=== PATIENT | female | born 1960 | race Caucasian/White ===

== ENCOUNTER → 2018-01-28 16:07 | Outpatient (CLI) | payer OTHER, SELFPAY ==
[2018-01-28 18:18] LABS: Anion Gap 10 (5-15); BUN 21 mg/dL (7-18); BUN/Creat Ratio 31.6 RATIO (10-20); Calcium,Total 9.1 mg/dL (8.5-10.1); Chloride 106 mmol/L (98-107); Cholesterol 248 mg/dL (200); Creatinine, Serum 0.66 mg/dL (0.55-1.02); EST Glomerular Filtration Rate 98 mL/min (>60); Est Glom Filt Rate - Afr Amer 119 mL/min (>60); Glucose 84 mg/dL (74-106); High Density Lipoprotein 52 mg/dL; Sodium Level 143 mmol/L (136-145); T4 Total, Thyroxin 12.5 ug/dL (4.8-13.9); Thyroid Stim Hormone (TSH) 2.33 uIU/mL (0.358-3.74); Triglycerides 147 mg/dL; Very Low Density Lipoprotein 29 mg/dL (5-40)
== END ==
PROVIDERS: Family Provider Family Medicine; PCP Family Medicine; Visit Provider Family Medicine
DX: Z00.00 Encounter for general adult medical examination without abnormal findings (principal); E03.9 Hypothyroidism, unspecified
CPT/HCPCS: 36415; 80048; 80061; 84436; 84443

== ENCOUNTER → 2019-09-08 15:35 | Outpatient (CLI) | payer OTHER, SELFPAY ==
[2019-06-21 07:15] VITALS: BMI 29.6
[2019-09-08 17:52] LABS: Cholesterol 313 mg/dL (200); High Density Lipoprotein 73 mg/dL; T4 Total, Thyroxin 9.6 ug/dL (4.8-13.9); Thyroid Stim Hormone (TSH) 8.28 uIU/mL (0.358-3.74); Triglycerides 82 mg/dL; Very Low Density Lipoprotein 16 mg/dL (5-40)
== END ==
PROVIDERS: Family Provider Family Medicine; PCP Family Medicine; Referring Provider Family Medicine; Visit Provider Family Medicine
DX: E03.9 Hypothyroidism, unspecified (principal); E78.5 Hyperlipidemia, unspecified
CPT/HCPCS: 36415; 80061; 84436; 84443

== ENCOUNTER → 2019-12-08 | Outpatient (CLI) | payer OTHER, SELFPAY ==
[2019-06-21 07:15] VITALS: BMI 29.6
[2019-12-08 17:44] LABS: AST(SGOT) 15 U/L (15-37); Alanine Aminotransfer ALT/SGPT 31 U/L (13-56); Cholesterol 173 mg/dL (200); High Density Lipoprotein 74 mg/dL; T4 Total, Thyroxin 13.7 ug/dL (4.8-13.9); Thyroid Stim Hormone (TSH) 0.01 uIU/mL (0.358-3.74); Triglycerides 93 mg/dL; Very Low Density Lipoprotein 19 mg/dL (5-40)
== END | disposition home or self-care (01) ==
LOC: MFPLAB 16:00
PROVIDERS: PCP Family Medicine; Referring Provider Family Medicine; Visit Provider Family Medicine
DX: E03.9 Hypothyroidism, unspecified (principal); E78.5 Hyperlipidemia, unspecified
CPT/HCPCS: 36415; 80061; 84436; 84443; 84450; 84460

== ENCOUNTER → 2020-03-06 | Outpatient (CLI) | payer OTHER, SELFPAY ==
[2019-06-21 07:15] VITALS: BMI 29.6
[2020-03-06 16:15] LABS: Thyroid Stim Hormone (TSH) 0.57 uIU/mL (0.358-3.74)
== END | disposition home or self-care (01) ==
LOC: MFPLAB 14:36
PROVIDERS: PCP Family Medicine; Visit Provider Family Medicine
DX: E03.9 Hypothyroidism, unspecified (principal)
CPT/HCPCS: 36415; 84443

== ENCOUNTER → 2022-05-22 | Outpatient (CLI) | payer OTHER, SELFPAY ==
[2022-05-22 15:35] LABS: Cholesterol 232 mg/dL (200); High Density Lipoprotein 55 mg/dL; T4 Total, Thyroxin 14.2 ug/dL (4.8-13.9); Thyroid Stim Hormone (TSH) 0.33 uIU/mL (0.358-3.74); Triglycerides 64 mg/dL; Very Low Density Lipoprotein 13 mg/dL (5-40)
== END | disposition home or self-care (01) ==
LOC: MFPLAB 11:48
PROVIDERS: PCP Family Medicine; Referring Provider Family Medicine; Visit Provider Family Medicine
DX: E03.9 Hypothyroidism, unspecified (principal); E78.5 Hyperlipidemia, unspecified
CPT/HCPCS: 36415; 80061; 84436; 84443

== ENCOUNTER → 2023-12-14 | Outpatient (CLI) | payer OTHER, SELFPAY ==
[2023-12-14 18:48] LABS: T4 Total, Thyroxin 13.2 ug/dL (4.8-13.9); Thyroid Stim Hormone (TSH) 3.37 uIU/mL (0.358-3.74)
== END | disposition home or self-care (01) ==
LOC: MFPLAB 15:44
PROVIDERS: PCP Family Medicine; Visit Provider Family Medicine
DX: E03.9 Hypothyroidism, unspecified (principal)
CPT/HCPCS: 36415; 84436; 84443

== ENCOUNTER → 2024-12-22 | Outpatient (CLI) | payer SELFPAY ==
[2024-12-22 18:20] LABS: Cholesterol 289 mg/dL (<=200); High Density Lipoprotein 62 mg/dL; Low Density Lipoprotein Calc. 204 mg/dL; Triglycerides 117 mg/dL; Very Low Density Lipoprotein 23 mg/dL (5-40); cholesterol:hdl ratio screen 4.68
== END | disposition home or self-care (01) ==
PROVIDERS: PCP Family Medicine; Referring Provider Family Medicine; Visit Provider Family Medicine
DX: E78.5 Hyperlipidemia, unspecified (principal); E03.9 Hypothyroidism, unspecified
CPT/HCPCS: 36415; 80061; 84436; 84443

== ENCOUNTER 2025-01-05 10:49 | Emergency (ER) | payer SELFPAY, OTHER ==
[2025-01-05 10:49] VITALS: BP 139/92; PULSE 103; RESP 18; TEMP 36.8; O2SAT 97; BMI 32.5
--- NOTE | 2025-01-05 12:04 | CT_ITS ---
PROCEDURE: CTA HEAD AND NECK W/ CONTRAST 01/05/2025 REASON FOR EXAM: HEADACHE Erythema of the right eye. TECHNIQUE: CTA imaging of the head and neck from the aortic arch to the skull vertex with intravenous contrast. Coronal and Sagittal reconstruction series were provided. 3D, 3D post processing, 3D reconstructions, Maximum intensity projection (MIPs) Volume rendering and Shaded surface rendering was provided. One or more dose reduction techniques were used (e.g., Automated exposure control, adjustment of the mA and/or kV according to patient size, use of iterative reconstruction technique). CONTRAST: Isovue 370 VOLUME: 100 mL RADIATION DOSE SUMMARY: CTDlvol: 28 mGy DLP: 1495.92 mGycm COMPARISON: None FINDINGS: Aortic Arch: Normal size and branching pattern. Mild atherosclerotic plaque. Brachiocephalic and Subclavians: Unremarkable RIGHT Carotid: Right CCA: Unremarkable. Right ICA: Unremarkable. Right ECA: Unremarkable. LEFT Carotid: Left CCA: Unremarkable. Left ICA: Unremarkable. Left ECA: Unremarkable. Vertebrals: Codominant. Arise from the subclavians. Both vertebrals form the basilar. RIGHT Vertebral: Unremarkable. LEFT Vertebral: Unremarkable. Anatomy: [place] anatomy is normal. Aneurysm or avm: No intracranial aneurysms or large vascular malformations are identified. Anterior cerebral arteries: Unremarkable: Middle cerebral arteries: Unremarkable. Basilar artery: Unremarkable. Posterior cerebral arteries: Unremarkable. Other major branches of the posterior circulation: Unremarkable. Major venous structures: Unremarkable. The unenhanced brain is unremarkable. CT/CTA Head AND Neck W/ Contrast IMPRESSION: Unremarkable examination. Reading Location: [place] [id number]
--- NOTE | 2025-01-05 12:05 | EX.ED.DYSGE1 ---
HPI History of Present Illness Chief Complaint: Headache Informant: patient Narrative Narrative: 64-year-old female presenting to the emergency room with bilateral eye redness and frontal headache. Patient states that she takes levothyroxine as well as starting rosuvastatin for high cholesterol. She called her primary care doctor today and was advised to come to emergency. She denies any foreign body sensation or trauma eye burning or excessive tearing. She notes a frontal pressure particularly when she moves her eyes. She denies any vision changes. No halos or floaters. She denies any arm leg or speech or sensory changes. She sees an motorized squad sergeant for glasses. [facility] Medical History Hypercholesterolemia Hypothyroid Allergic contact dermatitis Acute bronchitis Home Medications ?Medication ?Instructions ?Recorded ?Last Taken ?Type levothyroxine 200 mcg tablet 200 mcg PO DAILY 01/05/25 Unknown History rosuvastatin 5 mg tablet 5 mg PO QHS 01/05/25 Unknown History Allergy/AdvReac Type Severity Reaction Status Date / Time amoxicillin Allergy Mild Hives Verified 01/05/25 10:50 Penicillins Allergy Mild Hives Verified 01/05/25 10:50 Family History Uncle Colon cancer Other CHF (congestive heart failure) Surgical History History of colonoscopy History of section Social History household members: spouse current occupational status: employed current occupation: Dental office, 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 Smoking Status: Never smoker alcohol intake: never ROS ROS ED Constitutional Constitutional ED: Denies chills, fever(s) or weight loss Eyes Eyes: Reports other Details: Bilateral conjunctival injection ; Denies blurry vision, change in vision or diplopia ENT ENT ED: Denies ear pain, rhinorrhea or sore throat Cardiovascular Cardiovascular: Denies chest pain, orthopnea, palpitations or racing heartbeat Respiratory/Chest Respiratory/Chest: Denies cough, dyspnea or orthopnea Gastrointestinal Gastrointestinal: Denies abdominal pain, diarrhea, nausea or vomiting Genitourinary Genitourinary ED: Denies dysuria, hematuria or urinary frequency Musculoskeletal Musculoskeletal: Denies arthralgias or myalgias Integumentary Denies abscess or rash Neurologic Neurologic: Reports headache(s); Denies paresthesias or weakness Psychiatric Psychiatric: Denies anxiety, depression, suicidal ideation or suicidal thoughts Endocrine Endocrinology: Denies polydipsia, polyphagia or polyuria Allergic/Immunologic Allergic/Immunologic ED: Denies mouth swelling, tongue swelling or urticaria EXAM Physical Exam Const Vital Signs: 01/05/25 10:49 01/05/25 12:49 Temperature 98.3 F Temperature Source Temporal Pulse Rate 103 H 83 Respiratory Rate 18 16 Blood Pressure 139/92 H 129/80 H Blood Pressure Mean 107 96 Pulse Ox 97 98 Oxygen Delivery Method Room Air Positive well nourished and well developed General Appearance ED: well developed HEENT Reports normocephalic, head/scalp atraumatic and moist mucous membranes Eyes PERRL and EOMs intact bilaterally Eyes Narrative: Bilateral conjunctival injection. There is no corneal abrasions. No obvious corneal foreign bodies. No exudates are noted. No hyphema. Anterior chambers are deep and quiet. Consensual reflex bilaterally. No photophobia. Neck no lymphadenopathy, supple and no JVD Resp normal respiratory effort and clear to auscultation bilaterally Cardio regular rate, regular rhythm and no murmurs GI normal to inspection, nondistended, normoactive bowel sounds and non-tender Palpation: soft Back/Spine no CVA tenderness and normal ROM Extremity normal to inspection General Extremety ED: Negative for edema General Extremity: Negative for edema Neuro oriented x3 and CN's II-XII intact bilaterally Sensorium / Orientation: alert Motor Exam: strength 5/5 throughout Psych mental status grossly normal Mood & Affect: Negative for depressed or tearful Skin no rashes or lesions noted and no wounds MDM MDM MDM Narrative Medical decision making narrative: Differential diagnosis includes but not limited to conjunctivitis glaucoma/decreased pressures foreign body, thyrotoxicosis temporal arteritis autoimmune reaction allergic reaction Bilateral pressures show that the left eye is 19/23/18 in the right eye is 23/22/20. I do not appreciate any corneal or bodies or corneal abrasions. Basic blood work shows normal TSH free T3. White count 8.4. Normal LFTs. CPK is 60. Normal creatinine. CTA head and neck shows no acute findings. I spoke with Dr. Glaser from ophthalmology. Patient will use artificial tears. Have her follow-up in the office. To return if any new symptoms or concerns. History & Record Review Discussion w/independent historian: Patient Lab Data Attestation: I reviewed the patient's lab results. Labs: Laboratory Results - last 24 hr 01/05/25 12:15 WBC 8.4 RBC 4.27 Hgb 12.7 Hct 39.3 MCV 92.0 MCH 29.7 MCHC 32.3 RDW Std Deviation 48.8 H RDW Coeff of Freddie 14.4 Plt Count 220 MPV 11.8 Immature Gran % (Auto) 0.400 Neut % (Auto) 77.6 H Lymph % (Auto) 9.0 L [place] % (Auto) 9.1 Eos % (Auto) 3.7 Baso % (Auto) 0.2 Absolute Neuts (auto) 6.5 Absolute Lymphs (auto) 0.75 L Nucleated RBC % 0 Sodium 142 Potassium 3.8 Chloride 106 Carbon Dioxide 24.1 Anion Gap 12 BUN 12 Creatinine 0.70 Estim Creat Clear Calc 88.43 Est GFR (MDRD) Non-Af 98 BUN/Creatinine Ratio 16.8 Glucose 99 Calcium 9.1 Total Bilirubin 0.41 Direct Bilirubin 0.19 AST 15 ALT 12 Alkaline Phosphatase 55 Total Creatine Kinase 60 Total Protein 6.9 Albumin 4.2 Globulin 2.7 TSH 0.754 Free T3 pg/dL 2.6 Radiography Diagnostic Testing: Clinical Impression(s) from Imaging Studies Head/Neck CTA 01/05/25 12:04 IMPRESSION: Unremarkable examination. Reading Location: [place] [id number] Management Discussion w/another healthcare provider: Manager Client Service (Dr Glaser (ophthalmology)) Discharge Plan Triage Chief Complaint: Headache ED Provider: Rocky Castillo Dx/Rx/DC Orders Clinical Impression: Conjunctival injection, Headache Prescriptions: No Action levothyroxine 200 mcg tablet 200 mcg PO DAILY rosuvastatin 5 mg tablet 5 mg PO QHS Primary Care Provider: Nancy Prasad Referrals: Nancy Prasad MD [Primary Care Provider] - Monika Glaser MD [Med Staff - Active Staff] - As soon as possible Activity Restrictions/Additional Instructions: Use artificial tears to keep the eyes moist. Please schedule follow-up ophthalmology. Please return with any concerns or worsening particularly changes in vision or headache. Print Language: [place] Disposition Disposition: Home, Self Care
[2025-01-05] MEDS: Fluorescein 1 MG STRIP 1 STRIP EACH EYE (12:28)
[2025-01-05] MEDS: Tetracaine 0.5% Ophthalmic Bottle 1 DRP EACH EYE (12:29)
[2025-01-05 12:34] LABS: Absolute Lymphocyte Count 0.75 X10^3/uL (0.83-4.51); Absolute Neutrophil Count 6.5 X10^3/uL (2.0-7.7); Basophil# 0.02 X10^3/uL; Basophil% 0.2 % (0-1); Eosinophil# 0.31 X10^3/uL; Eosinophils% 3.7 % (0-5); Hematocrit 39.3 % (37-47); Hemoglobin 12.7 g/dL (12.0-15.0); Lymphocyte # 0.75 X10^3/ul (0.83-4.51); Mean Corp Hgb Conc 32.3 g/dL (32-36); Mean Corpuscular Hgb 29.7 pg (27.0-32.0); Mean Platelet Vol. 11.8 fl (6.2-12.0); Monocyte# 0.76 X10^3/uL; Monocyte% 9.1 % (0-10); NRBC Flagged by Analyzer 0 % (0-5); Neutrophil % 77.6 % (47-70); Platelet Count 220 K/mm3 (150-450); RBC Distribution Width CV 14.4 % (11.6-14.6); RBC Distribution Width SD 48.8 fl (35.1-43.9); Red Blood Count 4.27 M/mm3 (4.2-5.4); White Blood Count 8.4 K/mm3 (4.4-11.0)
[2025-01-05 12:49] VITALS: BP 129/80; PULSE 83; RESP 16; O2SAT 98
[2025-01-05 13:12] LABS: AST(SGOT) 15 U/L (<=31); Alanine Aminotransfer ALT/SGPT 12 U/L (<=34); Albumin, Serum 4.2 g/dL (3.4-4.8); Alkaline Phosphatase 55 U/L (35-104); Anion Gap 12 (5-15); BUN 12 mg/dL (4-19); BUN/Creat Ratio 16.8 RATIO (10-20); Bilirubin, Direct 0.19 mg/dL (0.00-0.30); Calcium,Total 9.1 mg/dL (7.6-11.0); Carbon Dioxide 24.1 mmol/L (21.0-32.0); Chloride 106 mmol/L (98-108); EST Glomerular Filtration Rate 98 (>60); Estimated Creatinine Clearance 88.43 ml/min (50-250); Globulin 2.7 g/dL (2.2-4.2); Glucose 99 mg/dL (70-99); Potassium 3.8 mmol/L (3.3-5.1); Protein, Total 6.9 g/dL (5.9-8.4); Sodium Level 142 mmol/L (133-145); Total Bilirubin 0.41 mg/dL (0.00-1.30)
[2025-01-05 13:18] LABS: CPK Total, Creatine Kinase 60 U/L (24-195); Free T3 2.6 pg/mL (2.18-3.98); Thyroid Stim Hormone (TSH) 0.754 uIU/mL (0.300-4.200)
[2025-01-05 14:29] VITALS: BP 138/90; PULSE 78; RESP 16; O2SAT 99
== END 2025-01-05 14:30 | disposition home or self-care (01) ==
PROVIDERS: Emergency Provider Emergency Medicine; PCP Family Medicine; Visit Provider Emergency Medicine
DX: R51.9 Headache, unspecified (principal); H11.89 Other specified disorders of conjunctiva; E78.00 Pure hypercholesterolemia, unspecified; E03.9 Hypothyroidism, unspecified; Z88.0 Allergy status to penicillin; Z79.890 Hormone replacement therapy; Z79.899 Other long term (current) drug therapy
CPT/HCPCS: 70496; 70498; 80048; 80076; 82550; 84443; 84481; 85025; 99285; Q9967; A4216

== ENCOUNTER → 2025-01-08 | Outpatient (CLI) | payer SELFPAY ==
[2025-01-08 15:54] LABS: Absolute Lymphocyte Count 0.66 X10^3/uL (0.83-4.51); Absolute Neutrophil Count 4.8 X10^3/uL (2.0-7.7); Basophil# 0.03 X10^3/uL; Basophil% 0.5 % (0-1); Eosinophil# 0.49 X10^3/uL; Eosinophils% 7.5 % (0-5); Hematocrit 38.9 % (37-47); Hemoglobin 12.5 g/dL (12.0-15.0); Lymphocyte # 0.66 X10^3/ul (0.83-4.51); Lymphocyte % 10.1 % (19-41); Mean Corp Hgb Conc 32.1 g/dL (32-36); Mean Corpuscular Hgb 29.5 pg (27.0-32.0); Mean Corpuscular Volume 91.7 fL (81-99); Mean Platelet Vol. 12.1 fl (6.2-12.0); Monocyte# 0.58 X10^3/uL; Monocyte% 8.9 % (0-10); NRBC Flagged by Analyzer 0 % (0-5); Neutrophil # 4.76 X10^3/uL (2.7-7.7); Neutrophil % 72.5 % (47-70); Platelet Count 256 K/mm3 (150-450); RBC Distribution Width CV 14.6 % (11.6-14.6); RBC Distribution Width SD 48.8 fl (35.1-43.9); Red Blood Count 4.24 M/mm3 (4.2-5.4); White Blood Count 6.6 K/mm3 (4.4-11.0)
[2025-01-08 18:23] LABS: EST Glomerular Filtration Rate 98 (>60); Syphilis Antibodies Nonreactive (Nonreactive)
[2025-01-08 18:24] LABS: Rheumatoid Factor < 10.0 IU/mL (<15)
[2025-01-10 14:08] LABS: Anti-Nuclear Antibody Test Negative (.); Anti-dsDNA Ab <1 IU/mL (0-9); RNP Ab 0.9 AI (0.0-0.9); SJOGREN'S Anti-SS-A test < 0.2 AI (0.0-0.9); SJOGREN'S Anti-SS-B test < 0.2 AI (0.0-0.9); Smith Ab <0.2 AI (0.0-0.9)
== END | disposition home or self-care (01) ==
PROVIDERS: PCP Family Medicine; Referring Provider Ophthalmology; Visit Provider Ophthalmology
DX: H20.013 Primary iridocyclitis, bilateral (principal); H25.813 Combined forms of age-related cataract, bilateral
CPT/HCPCS: 36415; 81374; 82164; 82565; 85025; 86038; 86225; 86235; 86431; 86617; 86780